=== PATIENT | female | born 1960 | race Caucasian/White ===

== ENCOUNTER 2019-06-04 19:08 | Emergency (ER) | payer MEDICAID ==
--- NOTE | 2019-06-04 19:14 | Emergency Department Record ---
History of Present Illness - General Chief complaint: Lower Extremity Pain Stated complaint: RT ANKLE INJURY Time Seen by Provider: 06/04/19 19:11 Source: Patient Mode of Arrival: Ambulatory Limitations: No limitations - History of Present Illness Initial comments: The patient is here due to R ankle pain after slipping on ice and twisting her ankle. She denies any other injuries. Complaint: Extremity pain Onset/Timin -: Hour(s) - Related Data Home Medications Medication Instructions Recorded Confirmed Last Taken Cetirizine HCl [Zyrtec] 1 tab PO DAILY 06/04/19 06/04/19 06/04/19 Estradiol 1 mg PO DAILY 06/04/19 06/04/19 06/04/19 Levothyroxine Sodium [Synthroid] 112 mcg PO DAILY 06/04/19 06/04/19 06/04/19 Allergies Allergy/AdvReac Type Severity Reaction Status Date / Time codeine Allergy ANAPHYLAXIS Verified 06/04/19 19:17 Review of Systems Constitutional: Denies: Chills, Fever Physical Exam - General General Appearance: Alert, Cooperative, No acute distress - Head Head exam: Atraumatic - Eye Eye exam: Normal appearance - Extremities Extremities exam: Normal capillary refill, Tenderness (There is tenderness to the distal lateral malleolus.), Other (The R foot is NVI. There is a neg anterior drawer sign.). negative: Normal inspection (There is mild to moderate swelling to the distal lateral malleolus area.), Full ROM, Pedal edema Image of Feet: 1 - Area of swelling and tenderness. - Neurological Neurological exam: Alert. negative: Motor sensory deficit Course - Reevaluation(s) Reevaluation #1: I did discuss the neg xrays for significant fx on the R ankle. She does appear to have a small avulsion off the talus which will indicate a significant sprain. I did place the patient in a [email or web address] walking boot and she is to ice and elevate the ankle for 3 days and see her PCP for recheck next week. 06/04/19 20:06 Medical Decision Making - Data Complexity MDM Data: X-Ray Ordered and/or Reviewed - Radiology Data Radiology results: Report reviewed (R ankle: small avulsion off talus, O/W neg.) Disposition Disposition: Discharge Clinical Impression: Right ankle sprain Qualifiers: Encounter type: initial encounter Involved ligament of ankle: unspecified ligament Qualified Code(s): S93.401A - Sprain of unspecified ligament of right ankle, initial encounter Disposition: Home, Self-Care Condition: (2) Stable Instructions: Ankle Sprain (ED) Additional Instructions: Please ice and elevate the R ankle for 3 days and wear the walking boot at all times. Please use Tylenol or Motrin for pain and please see your family doctor for recheck in 3-5 days. Forms: Patient Portal Access Time of Disposition: 20:09 Quality - Quality Measures Quality Measures: N/A - Blood Pressure Screening View Details: Yes Does Patient Have Any of the Following: No Blood Pressure Classification: Hypertensive Reading Systolic Measurement: 164 Diastolic Measurement: 90 Screening for High Blood Pressure: < First Hypertensive BP, F/U Documented > [G8950] First Hypertensive Follow-up Interventions: Referral to alternative/primary care provider.
[2019-06-04] MEDS ORDERED: ACETAMINOPHEN 325 MG TAB PO ONE (19:15)
--- NOTE | 2019-06-04 20:07 | RADIOLOGY REPORT ---
EXAMINATION: Right Ankle, Complete Minimum Three Views EXAM DATE: 06/04/2019 7:54 PM TECHNIQUE: AP, lateral, and oblique INDICATION: trauma COMPARISON: None ENCOUNTER: Initial FINDINGS: On the lateral view there is a curvilinear calcification along the dorsal margin of the distal pole o f the talus. The ankle maintains normal alignment. There is no ankle fracture. There is mild soft tis stephanie swelling over the lateral malleolus. There is a moderately sized plantar calcaneal spur and a sma ll dorsal calcaneal spur. The calcaneus maintains normal height. IMPRESSION: 1. There is an avulsion fracture from the distal pole of the talus likely related to an avulsion of t he talonavicular joint capsule. 2. Mild lateral ankle soft tissue swelling without an underlying fracture. Dictated by: Nicholas Dalton MD on 06/04/2019 8:03 PM. .
== END 2019-06-04 20:18 | disposition home or self-care (01) ==
LOC: ER 19:08
DX: S93.491A Sprain of other ligament of right ankle, initial encounter (principal); W00.0XXA Fall on same level due to ice and snow, initial encounter; Y92.007 Garden or yard of unspecified non-institutional (private) residence as the place of occurrence of the external cause
CPT/HCPCS: 99283